=== PATIENT | male | born 1955 | race Caucasian/White ===

== ENCOUNTER 2017-01-06 05:11 | Day surgery (SDC) | payer BC ==
[~2017-01-06 05:11] MED LIST: Dextrose 5%-0.45% NaCl 1,000 ML IV SCH; Sodium Chloride 0.9% 10 ML Syringe FLUSH PRN
[2017-01-06] MEDS ORDERED: fentaNYL 100 MCG/2 ML SDV IV ONE ×3 (05:12→06:35)
[2017-01-06] MEDS ORDERED: Midazolam 1 MG/ML 2 ML SDV IV ONE ×3 (05:12→06:36)
[2017-01-06] MEDS ORDERED: Midazolam 1 MG/ML 2 ML SDV ONE (06:12)
[2017-01-06] MEDS ORDERED: fentaNYL 100 MCG/2 ML SDV ONE (06:12)
--- NOTE | 2017-01-06 07:09 | OR ---
DATE: 01/06/2017 PROCEDURES: Esophagogastroduodenoscopy and multiple pinch biopsies. INSTRUMENT USED: GIF-H180 Olympus video panendoscope. PREMEDICATIONS: No oral topical anesthesia used. Fentanyl 100 mcg intravenous, Versed 2 mg intravenous. The procedure was done under pulse oximetry, BP recording, and senior etl developer. INDICATION: The patient with chronic hepatitis C and longstanding heartburn, on PPI. Esophagogastroduodenoscopy is performed for detection of any varices, Nieto esophagus and/or malignancy also under consideration, H. pylori status to be determined, endoscopic hemostasis therapy if needed. DESCRIPTION OF PROCEDURE: The scope was passed with ease. Adequate visualization of the esophagus was made from proximal to distal areas. No upper esophageal lesions identified. No distal esophageal stricture. No uphill or downhill esophageal varices. No Christie-Benton tear. No evidence of erosive esophagitis by Glenrock criteria. No esophageal polyp or tumor mass identified. Z-line was seen at around 40 cm distal to the oral verge, configuration consistent with grade 1 by ZAP classification. No proximal gastric varices noted. Gastric fundus examination by retroflexion showed no polypoid lesions. No gastric ulcer, malignant mass, or vascular ectasia identified. Duodenal bulb showed no ulcer. Visualized second part of the duodenum was unremarkable. Multiple pinch biopsies were taken from the gastric antrum and proximal body and sent for pyloric test for H. pylori, and if negative in an hour, tissue is to be sent for histopathology. No bleeding was noted from any of the visualized areas at the completion of examination. Photographs were taken of the duodenal bulb, gastric antrum, fundus, and distal esophagus. IMPRESSION: Normal study. The patient tolerated the procedure well. [facility] /[id number]
--- NOTE | 2017-01-06 09:27 | LETTER ---
01/06/2017 Sakshi Bailey [facility] [address] [address] RE: BRANDOANH DILIA : 1955 Dear. Leo: Mr. Anh Hays had esophagogastroduodenoscopy done this morning and he tolerated the procedure well. I herewith send a copy of the endoscopy note and photographs for your review. Thank you. Sincerely, [facility] /[id number]
[2017-01-06 10:34] VITALS: BP 126/88
== END 2017-01-06 08:55 | disposition home or self-care (01) ==
LOC: DL.ENDO 05:11
PROVIDERS: ATTEND Internal Medicine Gastroenterology
PROC: 0DB78ZX Excision of Stomach, Pylorus, Via Natural or Artificial Opening Endoscopic, Diagnostic (ICD-10-PCS; principal; 2017-01-06)
DX: K29.50 Unspecified chronic gastritis without bleeding (principal); F17.210 Nicotine dependence, cigarettes, uncomplicated; E78.5 Hyperlipidemia, unspecified; I10 Essential (primary) hypertension; E11.9 Type 2 diabetes mellitus without complications; K21.9 Gastro-esophageal reflux disease without esophagitis; F41.9 Anxiety disorder, unspecified; F32.9 Major depressive disorder, single episode, unspecified; Z90.49 Acquired absence of other specified parts of digestive tract; B19.20 Unspecified viral hepatitis C without hepatic coma; Z88.2 Allergy status to sulfonamides; Z79.899 Other long term (current) drug therapy; D69.6 Thrombocytopenia, unspecified
CPT/HCPCS: 43239; 87077; J2250; J3010; J7042

== ENCOUNTER 2017-10-28 07:43 | Day surgery (SDC) | payer BC, MEDICAID ==
[~2017-10-28 07:43] MED LIST changes: -Dextrose 5%-0.45% NaCl 1,000 ML IV SCH
[2017-10-28] MEDS ORDERED: fentaNYL 100 MCG/2 ML SDV IV ONE (07:44)
[2017-10-28] MEDS ORDERED: Lidocaine 1% 30 ML SDV INJECT ONE (07:44)
[2017-10-28] MEDS ORDERED: Bupivacaine 0.5% 30 ML SDV INJECT ONE (07:44)
[2017-10-28] MEDS ORDERED: Propofol 200 MG/20 ML SDV IV ONE (07:44)
[2017-10-28] MEDS ORDERED: Midazolam 1 MG/ML 2 ML SDV IV ONE (07:44)
[2017-10-28] MEDS ORDERED: Ondansetron 4 MG/2 ML SDV IV ONE (07:44)
[2017-10-28] MEDS: Sodium Chloride 0.9% 10 ML Syringe FLUSH PRN (08:25)
[2017-10-28] MEDS: Lactated Ringers 1,000 ML IV SCH (08:26)
[2017-10-28] MEDS ORDERED: Bupivacaine 0.5% 30 ML SDV ONE (09:52)
[2017-10-28] MEDS ORDERED: Lidocaine 1% 30 ML SDV ONE (09:52)
[2017-10-28] MEDS: ceFAZolin 1 GM in Premix Bag 1 BAG IV ONE ×2 (10:16→10:31)
[2017-10-28] MEDS: Lidocaine 1% 30 ML SDV INJECT ONE ×2 (10:25→11:55)
[2017-10-28] MEDS: Bupivacaine 0.5% 30 ML SDV INJECT ONE ×2 (10:25→11:55)
[2017-10-28] MEDS ORDERED: Acetaminophen/oxyCODONE 325-5 MG Tab PO PRN (12:03)
--- NOTE | 2017-10-28 12:03 | PCM.OPNOTE ---
- General Post-Op/Procedure Note Date of Surgery/Procedure: 10/28/17 Operative Procedure(s): right foot 1st metatarsal phalangeal joint cheilectomy/ silver bunionectomy with subchondral drilling of articular defect, hallux wound excision/debridement with bone excision distal phalanx. Pre Op Diagnosis: right foot chronic diabetic hallux ulceration, hallux limitus/ bunion Post-Op Diagnosis: sonali Anesthesia Technique: Local, MAC Primary Surgeon: Stefany Serna Anesthesia Provider: Lamont Gambino EBL in mLs: 5 Complications: none Condition: Good Free Text/Narrative:: Pt tolerated procedure well and was transported to recovery with vascular status intact to right foot. Well padded compression dressing applied.
[2017-10-28 13:54] VITALS: BP 126/78
--- NOTE | 2017-10-29 12:15 | OR ---
DATE: 10/28/2017 PREOPERATIVE DIAGNOSES: 1. Chronic diabetic ulceration of the right great toe. 2. Right foot hallux limitus with bunion. POSTOPERATIVE DIAGNOSES: 1. Chronic diabetic ulceration of the right great toe. 2. Right foot hallux limitus with bunion. PROCEDURES PERFORMED: 1. Right foot first metatarsophalangeal joint cheilectomy with Silver bunionectomy. 2. Right foot great toe diabetic ulceration debridement with bone spur excision. ANESTHESIA: Local MAC with preoperative local block of 10 mL 1:1 mixture of 1% lidocaine plain and 0.5% Marcaine plain. TOURNIQUET TIME: Pneumatic ankle tourniquet, 79 minutes. ESTIMATED BLOOD LOSS: Minimal. SPECIMEN: None. COMPLICATIONS: None. INDICATIONS: Clinton is a 61-year-old diabetic male who presents for a chronic wound under the great toe, fifth right foot. We have been dealing with this wound for many months now, has tried multiple different wound modalities with no relief. He also has a painful bunion on that foot with limitus of the first MTPJ, and I think this is contributing to his nonhealing of this chronic ulceration. He does get pain in the bunion, that keeps him up at night at times. He has been in the Cam walker for many months with no relief. X-rays of the right foot reveal no signs of cortical erosion at the hallux. There is some periarticular spurring at the first MTPJ with a mild bunion deformity present, and the first ray is elevated on the lateral view. The patient voiced good understanding of the proposed procedure and possible complications, elects to have surgery at this time. DESCRIPTION OF PROCEDURE: The patient was taken to the operating room lying in the supine position. After adequate anesthesia induction as described above, the right foot was prepped and draped in the usual sterile fashion. A pneumatic ankle tourniquet was inflated at 225 mmHg. Attention was then directed first to the right foot dorsal first MTPJ, where an approximately 4 cm linear incision was made overlying the joint. Sharp and blunt dissection was performed down to the level of the joint capsule. A L-capsulotomy was made, and the distal head of the first metatarsal was exposed. There was noted to be an articular defect at the central aspect which was drilled with a 0.062 inch K-wire. A sagittal saw was used to remove the medial eminence as well as the spurring around the joint in a V-shaped fashion. There was noted to be a significant amount of increased range of motion to the joint after this by approximately at least 50%. There was noted to be good fluid range of motion at this time with no crepitus present. The soft tissues around the area were released, and there was noted to have even more range of motion. A lateral release was performed at the fibular sesamoid, and the hallux was noted to be in a rectus alignment. The area was then irrigated with copious amounts of sterile saline. A medial capsulorrhaphy was performed. Deep closure was completed with 3-0 Vicryl, and skin closure was completed with 4-0 nylon. The area was dressed with Xeroform, and then attention was directed to the chronic wound on the plantar right great toe. The wound was excised with a #15 blade down to the tendon. The tendons appeared healthy underlying the wound. The tendons were reflected back, and the bone was exposed. The bone was also noted to be healthy in appearance without any signs of defects or infection. There was noted to be a bony prominence in this area, and it was resected with a rongeur as well as a bone rasp. The area was felt with my finger, and it was all noted to be smooth without any remaining prominence present. The area was then irrigated with copious amounts of normal saline. Deep closure was completed with 3-0 Vicryl, and the wound was able to be closed, and I used 4-0 nylon for this. The areas were then covered with Xeroform, fluffs, Webril, and an Vishnu wrap. He was placed nonweightbearing in a Cam boot. He tolerated the procedure well and was transported to recovery with vital signs stable and vascular status intact to the right foot as noted by immediate hyperemia to all digits upon deflation of the ankle tourniquet. He was then discharged home once he met hospital discharge requirements. I will keep him on an antibiotic postoperatively for a week. [facility] /[id number]
== END 2017-10-28 13:05 | disposition home or self-care (01) ==
LOC: DL.SDS 07:43
PROVIDERS: ATTEND Podiatrist
DX: E11.621 Type 2 diabetes mellitus with foot ulcer (principal); L97.519 Non-pressure chronic ulcer of other part of right foot with unspecified severity; M20.5X1 Other deformities of toe(s) (acquired), right foot; I10 Essential (primary) hypertension; E78.5 Hyperlipidemia, unspecified; B19.20 Unspecified viral hepatitis C without hepatic coma; E11.42 Type 2 diabetes mellitus with diabetic polyneuropathy; K21.9 Gastro-esophageal reflux disease without esophagitis; F41.9 Anxiety disorder, unspecified; F32.9 Major depressive disorder, single episode, unspecified; F17.210 Nicotine dependence, cigarettes, uncomplicated; Z88.2 Allergy status to sulfonamides; Z79.4 Long term (current) use of insulin; Z79.899 Other long term (current) drug therapy
CPT/HCPCS: 01480; 28291; 82962; J0690; J2250; J2405; J2704; J3010; J7050; J7120

== ENCOUNTER 2017-11-07 20:39 | Emergency (ER) | payer MEDICAID ==
[2017-11-07 20:56] VITALS: BP 100/71
--- NOTE | 2017-11-07 21:18 | EDM.PDOC ---
ED HPI GENERAL MEDICAL PROBLEM - General Chief Complaint: Laceration Stated Complaint: STITCHES BROKE OPEN ON FOOT [phone] Time Seen by Provider: 11/07/17 21:11 Source of Information: Reports: Patient History Limitations: Reports: No Limitations - History of Present Illness INITIAL COMMENTS - FREE TEXT/NARRATIVE: s/p bunionectomy 10days, started bleeding VEHICLE OPERATOR. - Related Data Allergies Allergy/AdvReac Type Severity Reaction Status Date / Time Sulfa (Sulfonamide Allergy Cannot Verified 10/28/17 08:23 Antibiotics) Remember Home Meds: Home Meds Aspirin [Halfprin] 81 mg PO DAILY 07/15/15 [History] Atenolol 50 mg PO DAILY 07/15/15 [History] Hydrochlorothiazide 25 mg PO TID 07/15/15 [History] Lisinopril 10 mg PO DAILY 07/15/15 [History] glipiZIDE [Glipizide Xl] 10 mg PO BID 07/15/15 [History] Naproxen Sodium [Aleve] 220 mg PO ASDIRECTED PRN 07/24/15 [History] Cyanocobalamin (Vitamin B-12) [Vitamin B-12] 1 tab PO DAILY 01/05/17 [History] Diclofenac Sodium [Voltaren 0.1% Ophth Soln] 1 applic TOP ASDIRECTED 01/05/17 [ History] Gabapentin [Neurontin] 400 mg PO BID 01/05/17 [History] Hydrocodone/Acetaminophen [Hydrocodon-Acetaminophen 5-325] 1 tab PO Q8HR PRN 04/11 [History] Insulin Detemir [Levemir Flextouch] 15 units SQ BEDTIME 01/05/17 [History] Multivit-Min/Iron Fum/Folic AC [Laceq-Bxlbawj-Ztdhibtk Tablet] 1 tab PO DAILY [History] Pantoprazole [ProTONIX] 40 mg PO ASDIRECTED 01/05/17 [History] Doxycycline [Vibramycin] 100 mg PO BID 10/25/17 [History] Insulin Aspart [NovoLOG] 10 units SQ TID 10/25/17 [History] Past Medical History HEENT History: Reports: Cataract, Impaired Vision, Other (See Below) Other HEENT History: BLURRED VISION. WEARS CORRECTIVE LENS Cardiovascular History: Reports: High Cholesterol, Hypertension Respiratory History: Reports: None Gastrointestinal History: Reports: GERD, Hepatitis, Other (See Below) Other Gastrointestinal History: CHRONIC HEP C Genitourinary History: Reports: None Musculoskeletal History: Reports: Arthritis, Gout Neurological History: Reports: Neuropathy, Diabetic Psychiatric History: Reports: Anxiety, Depression Endocrine/Metabolic History: Reports: Diabetes, Type II, Obesity/BMI 30+ Hematologic History: Reports: None Immunologic History: Reports: None Oncologic (Cancer) History: Reports: None Dermatologic History: Reports: None, Psoriasis - Infectious Disease History Infectious Disease History: Reports: Chicken Pox, Hepatitis C, Measles, Mumps - Past Surgical History Head Surgeries/Procedures: Reports: None HEENT Surgical History: Reports: Cataract Surgery, Other (See Below) Other HEENT Surgeries/Procedures: LENS IMPLANTS BILAT EYES Cardiovascular Surgical History: Reports: None Respiratory Surgical History: Reports: None GI Surgical History: Reports: Cholecystectomy, Colonoscopy, EGD Male Surgical History: Reports: None Endocrine Surgical History: Reports: None Neurological Surgical History: Reports: None Musculoskeletal Surgical History: Reports: None Oncologic Surgical History: Reports: None Dermatological Surgical History: Reports: None Social & Family History - Family History Family Medical History: Noncontributory - Caffeine Use Caffeine Use: Reports: Coffee Other Caffeine Use: COUPLE OF CUPS IN THE AM ED ROS GENERAL - Review of Systems Review Of Systems: ROS reveals no pertinent complaints other than HPI. ED EXAM, SKIN/RASH Exam: See Below Exam Limited By: No Limitations General Appearance: Alert, WD/WN, Anxious Ears: Hearing Grossly Normal Throat/Mouth: Normal Voice, No Airway Compromise Head: Atraumatic Neck: Non-Tender, Full Range of Motion Respiratory/Chest: No Respiratory Distress Cardiovascular: Regular Rate, Rhythm GI/Abdominal: Soft, Non-Tender Extremities: Other (left foot mild wound dehiscense without grossly discernable s/s cellulitis, no lymphangitis, NV wnl, gait limited to pain) Course - Vital Signs Last Recorded V/S: Last Vital Signs Temp 37.1 C 11/07/17 20:55 Pulse 89 11/07/17 20:55 Resp 16 11/07/17 20:55 BP 100/71 11/07/17 20:55 Pulse Ox 93 L 11/07/17 20:55 - Re-Assessments/Exams Free Text/Narrative Re-Assessment/Exam: 11/07/17 21:14 1) wound cleansed 2) surgicel applied 3) dressed Departure - Departure Time of Disposition: 21:15 Disposition: Home, Self-Care 01 Condition: Good Clinical Impression: Encounter for surgical wound dressing change - Discharge Information Instructions: Laceration Care, Adult, [id number] Additional Instructions: 1) keep wound clean dry covered 2) see Dr Miguel tomorrow 3) elevate leg tonight
== END 2017-11-07 21:38 | disposition home or self-care (01) ==
LOC: DL.ED 20:39
DX: T81.30XD Disruption of wound, unspecified, subsequent encounter (principal); I10 Essential (primary) hypertension; E11.9 Type 2 diabetes mellitus without complications; E66.9 Obesity, unspecified; Z88.2 Allergy status to sulfonamides; Z79.899 Other long term (current) drug therapy
CPT/HCPCS: 99282